=== PATIENT | male | born 1995 | race Caucasian/White ===

== ENCOUNTER 2018-02-10 07:17 | Outpatient (CLI) | payer OTHER, MEDICARE ==
[2018-02-10] MEDS: COSYNTROPIN 0.25 MG/ML VIAL (J0834 PER 0.25MG) IV (08:01)
[2018-02-10 11:03] LABS: CORTISOL BASELINE 19.8 UG/DL (4.3-22.4)
[2018-02-10 11:10] LABS: CORTISOL 60 MINUTES 31.8 UG/DL
[2018-02-10 11:12] LABS: CORTISOL 30 MINUTES 29.7 UG/DL
== END 2018-02-10 09:15 | disposition home or self-care (01) ==
LOC: M INFU 07:17
DX: E29.1 Testicular hypofunction (principal); E27.40 Unspecified adrenocortical insufficiency
CPT/HCPCS: J0834